=== PATIENT | female | born 1965 | race Caucasian/White ===

== ENCOUNTER → 2018-10-25 06:44 | Day surgery (SDC) | payer OTHER ==
[~2018-10-25 06:44] MED LIST: Acetaminophen IV 1GM/100ML * 100 ML ONE; Buffered Lidocaine 1% SYRIN* 1 ML/SYRINGE INTRADERM ONE; Bupivacaine 0.5%* 50 ML MDV VIAL ONE; Clindamycin 900 MG IVPREMIX(* 900 MG/50 ML SDV IV ONE; Lactated Ringers 1000 ML Bag* 1,000 ML IV SCH; Lidocaine 1% INJ* 10 MG/ML 30 ML SDV ONE; Lidocaine 2.5%/Prilocain 2.5%* 5 GM TUBE ONE; Midazolam* 1 MG/ML 5 ML VIAL (5 MG) ONE; Naloxone* 0.4 MG/ML 1 ML VIAL IV PRN; ceFAZolin 2 GM in NS PREMIX(*) 2 GM/100 ML BAG IVPB ONE; fentaNYL* 50 MCG/ML 2 ML VIAL (100 MCG VIAL) ONE
--- NOTE | 2018-10-25 12:22 | OP ---
Operative Report - Blank - Operative Report Date of Operation: 10/25/18 Note: Brief Operative Note Preop Dx: Left breast mammographic abnormality Postop Dx: same Procedure: excision Left breast mammo abnormality (after needle-localization) Anesthesia: DARCY Surgeon: Tej Academic Vice President: NINFA Sloan; LUIS Hines Fluids: 1200 ml RL EBL: < 50 ml Specimen: Left breast lump Drains: none Findings: as above Complications: none
[2018-10-25 14:35] VITALS: BP 122/80
--- NOTE | 2018-10-25 14:35 | OP ---
CC: Dr. Rasta Cooper * DATE OF OPERATION: 10/25/18 - SDS DATE OF : 63 SERVICE: General Surgery. ATTENDING SURGEON: Jennifer Burnham MD TRADER: NINFA Collazo ANESTHESIOLOGIST: Silviano Recinos DO ANESTHESIA: MAC converted to general anesthesia with an LMA. PRE-OP DIAGNOSIS: Left breast mammographic abnormality. POST-OP DIAGNOSIS: Left breast mammographic abnormality. OPERATIVE PROCEDURE: Left breast needle localized lumpectomy. SPECIMEN: Left breast mass. ESTIMATED BLOOD LOSS: Minimal, less than 10 cc. INDICATIONS: Ms. Temple is a very pleasant 52-year-old female with a history of a left breast mammographic abnormality. She underwent biopsy which was benign in its findings; however, given the discordance between the biopsy result and the suspicious findings on the mammogram, it was recommended she undergo an excisional biopsy of this area. She understood the risks, benefits, and alternatives of the procedure, and she wished to proceed. DESCRIPTION OF PROCEDURE: The patient was brought back to the operating room and placed on the operating table in the supine position. Sequential compression devices were placed in the bilateral lower extremities for DVT prophylaxis. Antibiotic with clindamycin was administered. The patient underwent local MAC anesthesia and her left breast was prepped and draped in normal sterile fashion. Prior to coming to the operating room, she had had undergone wire localization by Radiology and the images from the mammogram were displayed in the room. The wire had been cut to approximately 1 inch outside of the skin. Next, local anesthesia consisting of 0.25% Marcaine and 1% lidocaine was infiltrated into the left breast surrounding the wire and the wire was noted to be directed towards the 3 o'clock position posterior to the nipple. Therefore, an incision was made surrounding the wire including the skin where the wire was traversing. The skin was divided down to subcutaneous tissue and a cone of breast tissue was taken surrounding the wire towards the 3 o'clock position. Once the specimen was obtained and removed from the breast cavity, it was oriented with the following sutures: the short suture was located at the superior pole, the medium length suture was located at the medial pole, and the long suture was located at the lateral pole. It was carried off the table as specimen. It was then sent to mammography where they confirmed that the mammographic abnormality, the biopsy clip, and the wire were all contained within the specimen. Next, attention was turned towards obtaining hemostasis in the breast cavity. Once hemostasis was obtained, an irrigation of the cavity was performed using saline fluid, then approximately 8 cc of local anesthesia was left in the breast cavity for anesthesia. Attention was turned towards skin closure. 3-0 Vicryl sutures were used to reapproximate the subdermal layer and then the skin was closed using a running 4-0 Monocryl suture. Sterile dressings were then placed. The patient's anesthesia was reversed and she was taken to the PACU in stable condition. At the end of the case, all counts were correct and I was present during the entirety of the case. [id number]/[facility] #: [id number] KIERRA
== END | disposition home or self-care (01) ==
LOC: OR 06:44
PROVIDERS: ATTEND Surgery
DX: N63.20 Unspecified lump in the left breast, unspecified quadrant (principal); Z87.891 Personal history of nicotine dependence; K21.9 Gastro-esophageal reflux disease without esophagitis; M19.90 Unspecified osteoarthritis, unspecified site; Z87.442 Personal history of urinary calculi
CPT/HCPCS: 88307; 88341; 88342; A9270-GY; J0690; J2250; J3010; J3490

== ENCOUNTER 2019-02-08 09:09 | Emergency (ER) | payer OTHER ==
[2019-02-08 09:32] VITALS: BP 120/80
--- NOTE | 2019-02-08 10:12 | UC ---
Throat Pain/Nasal Thomas HPI - HPI Summary HPI Summary: 53-year-old female presents with complaints of 3 day history of general malaise , body aches, nasal congestion, sinus pressure, sore throat, chest congestion, and a harsh nonproductive cough. Denies fever, chills, ear pain, dysphagia, chest pain, palpitations, shortness of breath, abdominal pain, nausea, vomiting , or diarrhea. - History of Current Complaint Chief Complaint: UCRespiratory Stated Complaint: URI Time Seen by Provider: 02/08/19 09:46 Hx Obtained From: Patient Pain Intensity: 7 - Allergies/Home Medications Allergies/Adverse Reactions: Allergies Allergy/AdvReac Type Severity Reaction Status Date / Time amoxicillin [From Augmentin] Allergy Intermediate GI Upset Verified 02/08/19 09: 32 clarithromycin [From Biaxin] Allergy Intermediate GI Upset Verified 02/08/19 09: 32 clavulanic acid Allergy Intermediate GI Upset Verified 02/08/19 09:32 [From Augmentin] doxycycline Allergy Intermediate GI Upset Verified 02/08/19 09:32 lactose Allergy Intermediate GI Upset Verified 02/08/19 09:32 Home Medications: Home Medications Dm/PE/Acetaminophen/Doxylamine [Vicks Nyquil Severe Cold] 1 liq PO BEDTIME 02/08 [History Confirmed 02/08/19] PMH/Surg Hx/FS Hx/Imm Hx GI/ History: Gastroesophageal Reflux Psychological History: Depression - Surgical History Surgical History: Yes Surgery Procedure, Year, and Place: 2- [place] [facility] [place] A TEEN. NECK SURGERY PLATING[facility] [place]. 2 - SCREWS PLACED IN [place] [place] [place] CERVICAL CONE BIOPSY, 1988. TUBAL LIGATION- WITH TUBAL REMOVED, 1997. [place] [facility] [place], 2012 - Family History Known Family History: Positive: Non-Contributory - Social History Occupation: Employed Part-time Lives: With Family Alcohol Use: Rare Alcohol Amount: social Substance Use Type: None Smoking Status (MU): Former Smoker Amount Used/How Often: 1 PPD - 1 1/2 PPD X 10 YEARS Have You Smoked in the Last Year: No When Did the Patient Quit Smoking/Using Tobacco: 26 YEARS AGO Review of Systems All Other Systems Reviewed And Are Negative: Yes Constitutional: Positive: Fatigue. Negative: Fever, Chills Eyes: Negative: Drainage, Eye Redness ENT: Positive: Sore Throat, Nasal Discharge, Sinus Congestion, Sinus Pain/ Tenderness. Negative: Ear Ache Respiratory: Positive: Cough. Negative: Shortness Of Breath Cardiovascular: Negative: Palpitations, Chest Pain Gastrointestinal: Negative: Abdominal Pain, Vomiting, Diarrhea, Nausea Genitourinary: Positive: Negative Musculoskeletal: Positive: Myalgia Neurological: Positive: Negative Is Patient Immunocompromised?: No Physical Exam - Summary Physical Exam Summary: GENERAL APPEARANCE: Well developed, well nourished, alert and cooperative, and appears to be in no acute distress. EYES: Conjunctiva clear. No drainage. EARS: External auditory canals and tympanic membranes clear, hearing grossly intact. NOSE: Mil-moderate nasal congestion. No nasal discharge. THROAT: Pharyngeal erythema with post-nasal drip. Surgically absent tonsils. Uvula midline. NECK: Neck supple, non-tender without lymphadenopathy. CARDIAC: Normal S1 and S2. No S3, S4 or murmurs. Rhythm is regular. There is no peripheral edema, cyanosis or pallor. Extremities are warm and well perfused. Capillary refill is less than 2 seconds. Peripheral pulses intact. LUNGS: Few scattered expiratory wheezes. No rales, rhonchi, or diminished breath sounds. Harsh, non-productive, bronchospastic cough. ABDOMEN: Positive bowel sounds. Soft, nondistended, nontender. No guarding or rebound. No masses or hepatosplenomegally. MUSKULOSKELETAL: ROM intact to all extremities. No joint erythema or tenderness. Normal muscular development. Normal gait. SKIN: Skin normal color, texture and turgor with no lesions or eruptions. Triage Information Reviewed: Yes Vital Signs: Initial Vital Signs Temp 99.0 F 02/08/19 09:29 Pulse 86 02/08/19 09:29 Resp 18 02/08/19 09:29 BP 120/80 02/08/19 09:29 Pulse Ox 100 02/08/19 09:29 Vital Signs Reviewed: Yes Throat Pain/Nasal Course/Dx - Course Course Of Treatment: 53-year-old female presents with complaints of 3 day history of general malaise , body aches, nasal congestion, sinus pressure, sore throat, chest congestion, and a harsh nonproductive cough. Denies fever, chills, ear pain, dysphagia, chest pain, palpitations, shortness of breath, abdominal pain, nausea, vomiting , or diarrhea. Afebrile. Vital signs stable. Patient had mild to moderate nasal congestion, pharyngeal erythema with postnasal drip, surgically absent tonsils, no cervical lymphadenopathy, few scattered expiratory wheezes, a harsh , nonproductive, bronchospastic cough, but otherwise unremarkable exam. Patient was given a albuterol nebulizer treatment with resolution of her wheezes and improvement in the cough. She was also given Tessalon 100 mg PO to help with the cough. Discussed with the patient that I suspect her symptoms are related to a viral upper respiratory infection and I'm recommending symptomatic treatment at this time. I will provide her with a prescription for albuterol inhaler 2 puffs every 4-6 hours as needed for shortness of breath, wheezing, or coughing fits as well as Tessalon Perles one capsule every 8 hours as needed for cough. Patient is to follow-up with her primary care provider in 3-5 days if symptoms are not improving. Anticipatory guidance and warning symptoms were reviewed with the patient. Verbalizes understanding and agrees with plan of care. - Differential Dx/Diagnosis Differential Diagnosis/HQI/PQRI: Influenza, Sinusitis, URI Provider Diagnosis: Viral URI with cough Discharge ED - Sign-Out/Discharge Documenting (check all that apply): Patient Departure All imaging exams completed and their final reports reviewed: No Studies - Discharge Plan Condition: Stable Disposition: HOME Prescriptions: Albuterol HFA INHALER* [Ventolin HFA Inhaler*] 2 puff INH Q4H PRN #1 mdi PRN Reason: Sob/Wheezing Benzonatate CAP* [Tessalon 100 MG CAP*] 100 mg PO TID PRN #21 cap PRN Reason: Cough Fluticasone NASAL SPRAY 50MCG* [Flonase NASAL SPRAY 50MCG*] 2 spray BOTH NARES DAILY #1 btl Patient Education Materials: Upper Respiratory Infection (ED) Referrals: Rasta Cooper MD [Primary Care Provider] - Additional Instructions: Your history and exam are consistent with a viral upper respiratory infection. Viral infections do not respond to antibiotics and are limited to the treatment of symptoms. Viral infections typically run their course in 7-10 days. Drink plenty of fluids to avoid dehydration especially if you are running any fever. Use a saline rinse kit such as Neti Pot or NeilMed at least twice a day to help thin secretions and promote drainage of the sinuses. Use fluticasone (Flonase) nasal spray 2 sprays each nostril once daily. Use the albuterol inhaler 2 puffs every 4-6 hours as needed for shortness of breath, wheezing, or coughing fits. Take Tessalon Perles 1 cap every 8 hours as needed for cough. We gave you a dose in the clinic at 10:30 am. Take over the counter acetaminophen (Tylenol) or ibuprofen (Advil, Motrin) according to directions as needed for pain or fever. Use salt water gargles several times a day if you have a sore throat. You may also use Chloraseptic spray or Cepacol lonzenges according to directions which contain a numbing medication and can provide some temporary relief from your sore throat. Follow up with your primary care provider in 3-5 days if symptoms persist. Seek immediate medical attention in the emergency room if you have fever greater than 100.5 F despite taking acetaminophen or ibuprofen, have chest pain , difficulty breathing, are unable to swallow, or have any worsening of symptoms. - Billing Disposition and Condition Condition: STABLE Disposition: Home
[2019-02-08] MEDS ORDERED: Albuterol 2.5 MG/3 ML NEB.SOL* (0.083%) INH ONE (10:27)
[2019-02-08] MEDS ORDERED: Benzonatate CAP* 100 MG PO ONE (10:27)
== END 2019-02-08 11:05 | disposition home or self-care (01) ==
LOC: UCEAST 09:09
DX: J06.9 Acute upper respiratory infection, unspecified (principal); R05 Cough; Z88.0 Allergy status to penicillin; Z88.1 Allergy status to other antibiotic agents; Z91.011 Allergy to milk products; Z87.891 Personal history of nicotine dependence
CPT/HCPCS: 99212; A9270-GY; G0463

== ENCOUNTER 2019-02-15 08:08 | Emergency (ER) | payer OTHER ==
[2019-02-15 08:20] VITALS: BP 136/83
--- NOTE | 2019-02-15 09:03 | UC ---
Respiratory Complaint HPI - HPI Summary HPI Summary: 10 DAYS OF PERSISTENT COUGH, CHEST CONGESTION AND FATIGUE. HAS DYSPNEA AND FEELS SHE CAN'T TAKE A DEEP BREATH. STATES SHE HAS BEEN COUGHING SO HARD SHE WONDERS IF SHE POPPED A RIB ON THE LEFT SIDE. WAS SEEN HERE ONE WEEK AGO AND DIAGNOSED WITH A VIRAL INFECTION AND TREATED WITH BRONCHODILATORS WHICH SHE STATES ARE NOT HELPING. - History of Current Complaint Chief Complaint: UCGeneralIllness Stated Complaint: CHEST CONGESTION Time Seen by Provider: 02/15/19 08:35 Hx Obtained From: Patient Onset/Duration: Gradual Onset, Lasting Days, Still Present Timing: Constant Severity Initially: Moderate Severity Currently: Moderate Pain Intensity: 8 Pain Scale Used: 0-10 Numeric Character: Cough: Nonproductive Aggravating Factors: Nothing Alleviating Factors: Nothing Associated Signs And Symptoms: Positive: Dyspnea. Negative: Fever, Chills, Wheezing - Allergies/Home Medications Allergies/Adverse Reactions: Allergies Allergy/AdvReac Type Severity Reaction Status Date / Time amoxicillin [From Augmentin] Allergy Intermediate GI Upset Verified 02/15/19 08: 23 clarithromycin [From Biaxin] Allergy Intermediate GI Upset Verified 02/15/19 08: 23 clavulanic acid Allergy Intermediate GI Upset Verified 02/15/19 08:23 [From Augmentin] doxycycline Allergy Intermediate GI Upset Verified 02/15/19 08:23 lactose Allergy Intermediate GI Upset Verified 02/15/19 08:23 PMH/Surg Hx/FS Hx/Imm Hx GI/ History: Gastroesophageal Reflux Cancer History: Cervical Cancer - Surgical History Surgical History: Yes Surgery Procedure, Year, and Place: 2- [place] [facility] [place]OMY- A TEEN. NECK SURGERY PLATING-[facility], 2008. 2 - SCREWS PLACED IN LEFT [place] [place] [place]. CERVICAL CONE BIOPSY, 1988. TUBAL LIGATION- WITH TUBAL REMOVED, 1997. CERVICAL ABLASION 2014, [facility] [place]. left breast lumpectomy, 2012 - Family History Known Family History: Positive: Non-Contributory - Social History Alcohol Use: Rare Alcohol Amount: social Substance Use Type: None Smoking Status (MU): Former Smoker Amount Used/How Often: 1 PPD - 1 1/2 PPD X 10 YEARS Have You Smoked in the Last Year: No When Did the Patient Quit Smoking/Using Tobacco: 26 YEARS AGO Review of Systems All Other Systems Reviewed And Are Negative: Yes Constitutional: Positive: Fatigue Respiratory: Positive: Shortness Of Breath, Cough Cardiovascular: Positive: Negative Gastrointestinal: Positive: Negative Physical Exam Triage Information Reviewed: Yes Appearance: No Pain Distress, Well-Nourished, Ill-Appearing - SEEMS FATIGUED Vital Signs: Initial Vital Signs Temp 97.6 F 02/15/19 08:15 Pulse 86 02/15/19 08:15 Resp 26 02/15/19 08:15 BP 136/83 02/15/19 08:15 Pulse Ox 100 02/15/19 08:15 Vital Signs Reviewed: Yes Eyes: Positive: Conjunctiva Clear ENT: Positive: Hearing grossly normal, Pharynx normal, TMs normal Neck: Positive: Supple, Nontender, No Lymphadenopathy Respiratory Exam: Normal Cardiovascular Exam: Normal Abdomen Description: Positive: Soft Musculoskeletal: Positive: No Edema, Other: - TTP LEFT ANTERIOR RIB CAGE Neurological: Positive: Alert Skin: Negative: Rashes Diagnostics - Radiology LEFT RIB/CHEST XRAYS Radiology Interpretation Completed By: Radiologist Summary of Radiographic Findings: 1. NO DISPLACED FRACTURE OR PNEUMOTHORAX IDENTIFIED. 2. NO ACUTE CARDIOPULMONARY PROCESS BY RADIOGRAPH. Respiratory Course/Dx - Course Course Of Treatment: LEFT RIB X-RAYS AND CHEST X-RAY TODAY UNREMARKABLE. OXYGEN SATURATION NORMAL. PATIENT LIKELY WITH VIRALLY MEDIATED BRONCHITIS/LARYNGITIS. SHE MAY ALSO HAVE STRAINED HER LEFT INTERCOSTAL MUSCLES. ADVISED OTC MEDICATIONS SUCH IBUPROFEN FOR DISCOMFORT. WILL GIVE 5 DAY BURST OF PREDNISONE TO HELP WITH AIRWAY INFLAMMATION. PATIENT ALREADY HAS ALBUTEROL AND COUGH MEDICINE AT HOME THAT SHE CAN USE PRESCRIBED. GIVEN THE LENGTH OF TIME OF ILLNESS WILL GO AHEAD AND COVER WITH AN ANTIBIOTIC. PATIENT STATES SHE HAS TAKEN AZITHROMYCIN IN THE PAST WITHOUT DIFFICULTY SO WILL PRESCRIBE THAT TODAY. TO THE ER WITHOUT FAIL IF SX WORSEN. - Differential Dx/Diagnosis Provider Diagnosis: Acute bronchitis, Intercostal muscle strain Discharge ED - Sign-Out/Discharge Documenting (check all that apply): Patient Departure All imaging exams completed and their final reports reviewed: Yes - Discharge Plan Condition: Stable Disposition: HOME Prescriptions: Azithromycin 500 mg PO DAILY #5 tablet predniSONE TAB* [Deltasone TAB*] 50 mg PO DAILY #4 tab Patient Education Materials: Laryngitis (ED), Acute Bronchitis (ED) Referrals: Rasta Cooper MD [Primary Care Provider] - If Needed Additional Instructions: LEFT RIB XRAYS AND CHEST XRAY TODAY UNREMARKABLE. YOUR SYMPTOMS MAY BE VIRALLY MEDIATED BUT GIVEN THE LENGTH OF TIME YOU HAVE BEEN ILL WE WILL COVER YOU WITH ANTIBIOTICS. IF YOU START THE MEDICINE BE SURE TO TAKE IT FOR THE FULL COURSE. REST, HYDRATE, OTC MEDS NEEDED. WILL ALSO TREAT WITH PREDNISONE TO HELP WITH AIRWAY INFLAMMATION. USE YOUR ALBUTEROL AND COUGH MEDICINE AT HOME PRESCRIBED. SEEK FOLLOW-UP WITH YOUR PCP IF YOU ARE NOT IMPROVING OVER THE NEXT 1-2 WEEKS. YOU MAY HAVE STRAINED THE MUSCLES IN BETWEEN YOUR RIBS. BE SURE TO TAKE SLOW DEEP BREATHS SEVERAL TIMES DAILY TO HELP KEEP YOUR LUNGS EXPANDED. HUG A FIRM PILLOW AGAINST YOUR RIB CAGE WHEN COUGHING TO HELP WITH THE DISCOMFORT. GO TO THE ER WITHOUT FAIL IF YOU DEVELOP WORSENING SHORTNESS OF BREATH, CHEST PAIN, FEVER, NAUSEA OR ANY OTHER CONCERNING SYMPTOMS. - Billing Disposition and Condition Condition: STABLE Disposition: Home
== END 2019-02-15 09:54 | disposition home or self-care (01) ==
LOC: UCEAST 08:08
DX: S29.011A Strain of muscle and tendon of front wall of thorax, initial encounter (principal); J20.9 Acute bronchitis, unspecified; Z88.0 Allergy status to penicillin; Z88.1 Allergy status to other antibiotic agents; Z91.011 Allergy to milk products; Z85.41 Personal history of malignant neoplasm of cervix uteri; Z87.891 Personal history of nicotine dependence; X58.XXXA Exposure to other specified factors, initial encounter; Y92.9 Unspecified place or not applicable
CPT/HCPCS: 71046; 99212; G0463; J7512